=== PATIENT | female | born 1985 | race Two or more races ===

== ENCOUNTER 2022-05-22 04:00 | Inpatient (IN) | payer MEDICAID ==
[2022-05-20 10:09] LABS: Urine Bacteria FEW /hpf (None Seen); Urine Blood Negative /uL (Negative); Urine Mucus FEW (None Seen); Urine Specific Gravity 1.028 (1.001-1.035); Urine WBC 12 /hpf (0 - 5)
[2022-05-20 10:09] LABS: Basophils # (auto) 0 10 ^3/uL (0-0.2); Basophils % (auto) 0.5 % (0.0-2.0); Eosinophils # (auto) 0.2 10 ^3/uL (0-0.8); Eosinophils % (auto) 2.2 % (0.0-7.0); Hematocrit 37.2 % (36.0-46.0); Hemoglobin 12.6 g/dL (12.2-16.2); Lymphocytes # (auto) 1.7 10 ^3/uL (0.4-5.4); Lymphocytes % (auto) 17.2 % (10.0-50.0); Mean Corpuscular Hemoglobin 29.7 pg (28.0-32.0); Mean Corpuscular Hgb Conc. 33.9 g/dL (32.0-36.0); Mean Corpuscular Volume 87.4 fL (80.0-100.0); Monocytes # (auto) 0.6 10 ^3/uL (0-1.3); Monocytes % (auto) 5.8 % (0.0-12.0); Neutrophils # (auto) 7.5 10 ^3/uL (1.6-8.6); Neutrophils % (auto) 74.3 % (37.0-80.0); Nucleated Red Blood Cells % 0.1 %; Red Blood Cells 4.25 10^6/uL (4.0-5.20); Red Cell Distribution Width 14.3 % (11.8-14.3); White Blood Cell 10.1 10^3/uL (4.4-10.8)
[2022-05-20 10:16] LABS: Albumin 2.6 g/dL (3.4-5.0); Calcium 8.7 mg/dL (8.5-10.1); Potassium 3.7 mmol/L (3.5-5.1)
[2022-05-20 10:18] LABS: Amphetamine Screen, Urine NEGATIVE (NEGATIVE); Barbiturate Scree,Urine NEGATIVE (NEGATIVE); Benzodiazephine Screen, Urine NEGATIVE (NEGATIVE); Cannabinoid Screen, Urine NEGATIVE (NEGATIVE); Cocaine Screen, Urine NEGATIVE (NEGATIVE); Opiate Scree,Urine NEGATIVE (NEGATIVE); Phencyclidine Screen, Urine NEGATIVE (NEGATIVE)
[2022-05-20 10:23] LABS: BUN/Creatinine Ratio 11.8; Bilirubin, Total 0.3 mg/dL (0.2-1.0); Total Protein 6.8 g/dL (6.4-8.2)
[2022-05-20 10:24] LABS: INR 0.93 (0.9-1.15)
[2022-05-21 06:25] LABS: RPR Non Reactive (Non Reactive)
[2022-05-22] VITALS (18 sets, daily range): BP systolic 101–119; BP diastolic 57–74
[~2022-05-22] VITALS: Ht 165.1 cm; Wt 93.0 kg
[2022-05-22] MEDS ORDERED: LACTATED RINGER'S 1,000 ML IV ONE (04:45)
[2022-05-22] MEDS ORDERED: ceFAZolin 1GM/50ML 50 ML IV ONE (04:45)
[2022-05-22] MEDS ORDERED: CLINDAMYCIN 900MG IV 50 ML IV ONE ×2 (07:04→07:15)
[2022-05-22] MEDS ORDERED: TETRACAINE 1% INJ 2 ML VIAL IJ ONE (07:20)
[2022-05-22] MEDS ORDERED: SODIUM CITR/CITRIC ACID ORAL SOLN 30 ML ONE (07:22)
[2022-05-22] MEDS ORDERED: MORPHINE SULF PF 5 MG/10 ML VIAL ONE (07:23)
[2022-05-22] MEDS ORDERED: oxyTOCIN 10 UNIT/ML 10ML VIAL ONE (08:25)
[2022-05-22] MEDS ORDERED: LACT. RINGERS/OXYTOCIN 20UNITS 1,000 ML IV ONE (08:30)
[2022-05-22] MEDS ORDERED: GUM (CHEWING) 1 GUM CHEW CHEW ONE (08:30)
[2022-05-22] MEDS ORDERED: ONDANSETRON HCL 4 MG/2 ML VIAL IV PRN ×2 (08:30→08:45)
[2022-05-22] MEDS ORDERED: IBUP800T27 PO (08:31)
[2022-05-22] MEDS ORDERED: DOCU-94 PO (08:31)
[2022-05-22] MEDS ORDERED: HYDR-4902 PO (08:31)
[2022-05-22] MEDS ORDERED: DexAMETHasone SOD PHOS 10MG/1ML VIAL INJ IV PRN (08:45)
[2022-05-22] MEDS ORDERED: NALBUPHINE HCL 10 MG/1ml INJECTION SUBCUT ONE (08:45)
[2022-05-22] MEDS ORDERED: NALOXONE HCL 0.4 MG/ML VIAL IV PRN (08:45)
[2022-05-22] MEDS ORDERED: HYDROmorphone HCL 2 MG/ML VL/or syr IV PRN (08:45)
[2022-05-22] MEDS: LACTATED RINGER'S 1,000 ML IV SCH ×2 (09:13→11:27)
[2022-05-22] MEDS: SODIUM CITR/CITRIC ACID ORAL SOLN 30 ML PO SCH ×2 (09:14→13:00)
[2022-05-22] MEDS: ACETAMINOPHEN IV 1000 MG/100ML (10MG/ML) IV PRN ×2 (11:26→20:13)
[2022-05-22] MEDS: diphenhdrAMINE HCL 50 MG/1 ML VL IV PRN ×3 (12:14→22:52)
[2022-05-22] MEDS ORDERED: CLINDAMYCIN 600MG IV 50 ML IV SCH ×2 (17:00→19:30)
[2022-05-22 21:28] LABS: Basophils # (auto) 0 10 ^3/uL (0-0.2); Basophils % (auto) 0.4 % (0.0-2.0); Eosinophils # (auto) 0.1 10 ^3/uL (0-0.8); Hematocrit 35.8 % (36.0-46.0); Hemoglobin 12.1 g/dL (12.2-16.2); Lymphocytes # (auto) 1.9 10 ^3/uL (0.4-5.4); Lymphocytes % (auto) 16.4 % (10.0-50.0); Mean Corpuscular Hemoglobin 29.5 pg (28.0-32.0); Mean Corpuscular Hgb Conc. 33.8 g/dL (32.0-36.0); Mean Corpuscular Volume 87.4 fL (80.0-100.0); Monocytes # (auto) 0.6 10 ^3/uL (0-1.3); Monocytes % (auto) 5.6 % (0.0-12.0); Neutrophils # (auto) 8.9 10 ^3/uL (1.6-8.6); Neutrophils % (auto) 76.6 % (37.0-80.0); Red Cell Distribution Width 14.3 % (11.8-14.3); White Blood Cell 11.6 10^3/uL (4.4-10.8)
[2022-05-23] VITALS (9 sets, daily range): BP systolic 96–117; BP diastolic 52–70
[2022-05-23] MEDS ORDERED: KETOROLAC TROMETH 30 MG/ML 1ML VIAL IV ONE (03:00)
[2022-05-23] MEDS: ACETAMINOPHEN IV 1000 MG/100ML (10MG/ML) IV PRN (05:41)
[2022-05-23] MEDS: LACTATED RINGER'S 1,000 ML IV SCH (06:36)
[2022-05-23] MEDS ORDERED: CLINDAMYCIN 600MG IV 50 ML IV SCH (06:45)
[2022-05-23 07:05] LABS: Basophils # (auto) 0 10 ^3/uL (0-0.2); Basophils % (auto) 0.4 % (0.0-2.0); Eosinophils # (auto) 0.2 10 ^3/uL (0-0.8); Hematocrit 35.5 % (36.0-46.0); Hemoglobin 12.1 g/dL (12.2-16.2); Lymphocytes # (auto) 1.5 10 ^3/uL (0.4-5.4); Lymphocytes % (auto) 16.2 % (10.0-50.0); Mean Corpuscular Hemoglobin 29.8 pg (28.0-32.0); Mean Corpuscular Hgb Conc. 34.1 g/dL (32.0-36.0); Mean Corpuscular Volume 87.3 fL (80.0-100.0); Monocytes # (auto) 0.6 10 ^3/uL (0-1.3); Monocytes % (auto) 6.6 % (0.0-12.0); Neutrophils # (auto) 6.9 10 ^3/uL (1.6-8.6); Neutrophils % (auto) 74.8 % (37.0-80.0); Red Blood Cells 4.06 10^6/uL (4.0-5.20); Red Cell Distribution Width 14.5 % (11.8-14.3); White Blood Cell 9.2 10^3/uL (4.4-10.8)
[2022-05-23] MEDS: diphenhdrAMINE HCL 50 MG/1 ML VL IV PRN (09:47)
[2022-05-23] MEDS ORDERED: HYDROcodone-ACET 5/325MG TAB PO PRN (10:45)
[2022-05-23] MEDS ORDERED: BISACODYL 10 MG RECT SUPP PR PRN (10:45)
[2022-05-23] MEDS: SIMETHICONE 80 MG CHEWABLE TABLET PO SCH ×3 (11:41→22:48)
[2022-05-23] MEDS: HYDROcodone-ACET 5/325MG TAB PO PRN ×2 (11:41→22:49)
[2022-05-23] MEDS: IBUPROFEN 800 MG TAB PO PRN (15:57)
[2022-05-23] MEDS ORDERED: DOCUSATE SOD 100 MG CAP PO SCH (22:00)
[2022-05-24 02:50] VITALS: BP 98/57
[2022-05-24] MEDS: IBUPROFEN 800 MG TAB PO PRN (03:05)
[2022-05-24] MEDS: SIMETHICONE 80 MG CHEWABLE TABLET PO SCH (06:03)
[2022-05-24] MEDS: HYDROcodone-ACET 5/325MG TAB PO PRN (06:03)
[2022-05-24 07:00] VITALS: BP 110/55
[2022-05-24 11:00] VITALS: BP 112/59
== END 2022-05-24 12:26 | disposition home or self-care (01) | DRG 540 ==
LOC: LDRP 04:00 → UNDOADMIN 04:00 → LDRP 04:49
PROVIDERS: ADMIT Obstetrics & Gynecology; ATTEND Obstetrics & Gynecology
PROC: 10D00Z1 Extraction of Products of Conception, Low, Open Approach (ICD-10-PCS; principal; 2022-05-22 07:26)
DX: O34.211 Maternal care for low transverse scar from previous cesarean delivery (principal); Z20.822 Contact with and (suspected) exposure to COVID-19; Z37.0 Single live birth; Z3A.39 39 weeks gestation of pregnancy; Z88.1 Allergy status to other antibiotic agents; Z88.0 Allergy status to penicillin
CPT/HCPCS: 36415; 59025; 80053; 80307; 81001; 85025; 85610; 85730; 86592; 86850; 86900; 86901; 94760; 94762; 96360; 96361; 96374; 96375; G0378; J0131; J0690; J1885; J2405; J2590; J3490